=== PATIENT | female | born 1965 | race African-American/Black ===

== ENCOUNTER 2020-10-24 12:24 | Emergency (ER) | payer MEDICARE, OTHER ==
[~2020-10-24] VITALS: Ht 165.1 cm; Wt 92.1 kg
--- NOTE | 2020-10-24 12:49 | NUR ---
THE PATIENT IS IN ER BED #1 FOR C/O CHRONIC LT KNEE PAIN. THE PATIENT RATES PAIN 10/10. DENIES ANY RECENT FALL/INJURY. WARM BLANKET PROVIDED FOR COMFORT. WILL CONTINUE TO MONITOR THE PATIENT.
[2020-10-24] MEDS ORDERED: HYDROCODONE/APAP 10/325MG TABLET PO ONE (13:00)
[2020-10-24] MEDS ORDERED: HYDROCODONE/APAP 10/325MG TABLET ONE (13:06)
[2020-10-24] MEDS ORDERED: OXYC1TAB12 PO (13:10)
[2020-10-24 13:19] VITALS: BP 113/72
--- NOTE | 2020-10-24 13:19 | NUR ---
Patient discharged to home in stable condition. Written and verbal after care instructions given. Patient verbalizes understanding of instruction. The patient left ER in stable condition.
== END 2020-10-24 13:20 | disposition home or self-care (01) ==
LOC: ER 12:45
DX: M25.562 Pain in left knee (principal); J45.909 Unspecified asthma, uncomplicated; E66.01 Morbid (severe) obesity due to excess calories; Z68.33 Body mass index [BMI] 33.0-33.9, adult; Z85.3 Personal history of malignant neoplasm of breast; Z88.2 Allergy status to sulfonamides; Z91.040 Latex allergy status; Z88.8 Allergy status to other drugs, medicaments and biological substances; Z79.899 Other long term (current) drug therapy

== ENCOUNTER 2020-10-29 12:38 | Emergency (ER) | payer MEDICARE, OTHER ==
[~2020-10-29] VITALS: Ht 165.1 cm; Wt 90.7 kg
[~2020-10-29 12:38] MED LIST: OXYC1TAB12 PO
--- NOTE | 2020-10-29 12:54 | NUR ---
BIBS FROM HOME TO ER BED 3. AAOX4. NOT IN RESP DISTRESS, BRETAHING EVEN AND UNLABORED. AMBULATORY. CAME IN FOR SOB AND CP. PER PT, SOB HAS BEEN GOING ON FOR THE PAST 2 DAYS. PT ALSO C/O OF A MID STERNAL CHEST PAIN SX 1.5 AGO PRESSURE BURNING SENSATION RADIAITING TO BACK 02/15. PT IS NOTED WITH O2 SAT OF 99% ON RA. AWAITING MD FOR EVAL.
[2020-10-29] MEDS ORDERED: ALBU8.5H8 INH (13:45)
[2020-10-29] MEDS ORDERED: ALBUTEROL FS 2.5 MG/3 ML VIAL.NEB ONE (13:48)
[2020-10-29] MEDS ORDERED: IPRATROPIUM NEB FS 0.5 MG/2.5 ML AMPUL.NEB ONE (13:48)
[2020-10-29] MEDS: IPRATROPIUM NEB FS 0.5 MG/2.5 ML AMPUL.NEB NEB ONE (13:53)
[2020-10-29] MEDS: ALBUTEROL FS 2.5 MG/3 ML VIAL.NEB NEB ONE (13:53)
--- NOTE | 2020-10-29 14:13 | NUR ---
Patient discharged to home in stable condition. Written and verbal after care instructions given. Patient verbalizes understanding of instruction. Pt ambulatory with a steady gait
[2020-10-29 14:14] VITALS: BP 119/73
== END 2020-10-29 14:15 | disposition home or self-care (01) ==
LOC: ER 13:02
DX: J45.909 Unspecified asthma, uncomplicated (principal); I10 Essential (primary) hypertension; Z85.3 Personal history of malignant neoplasm of breast; Z85.42 Personal history of malignant neoplasm of other parts of uterus; Z90.11 Acquired absence of right breast and nipple; Z88.2 Allergy status to sulfonamides; Z91.040 Latex allergy status; Z88.8 Allergy status to other drugs, medicaments and biological substances; Z79.899 Other long term (current) drug therapy
CPT/HCPCS: 71045-TC